=== PATIENT | male | born 1960 | race Caucasian/White ===

== ENCOUNTER 2017-07-31 10:49 | Emergency (ER) | payer BC ==
[2017-07-31] MEDS ORDERED: Rabies VIRUS VACCINE (Imovax)* 2.5 UNIT/ML 1 ML IM ONE (11:08)
--- NOTE | 2017-07-31 11:08 | UC ---
UC General HPI - HPI Summary HPI Summary: Patient here today for rabies vaccination Patient and family will be traveling abroad to a destination where there could be exposure and desires prophylaxis. No fever or chills. No acute concerns. - History of Current Complaint Stated Complaint: RABIES VACC Time Seen by Provider: 07/31/17 11:07 Hx Obtained From: Patient - Allergy/Home Medications Allergies/Adverse Reactions: Allergies Allergy/AdvReac Type Severity Reaction Status Date / Time No Known Allergies Allergy Verified 07/31/17 11:13 PMH/Surg Hx/FS Hx/Imm Hx Previously Healthy: Yes - Family History Known Family History: Positive: None - Social History Occupation: Employed Full-time Lives: With Family Review of Systems Constitutional: Negative Skin: Negative Respiratory: Negative Cardiovascular: Negative Neurological: Negative Psychological: Negative Is Patient Immunocompromised?: No All Other Systems Reviewed And Are Negative: No Physical Exam Triage Information Reviewed: Yes Appearance: Well-Appearing, No Pain Distress, Well-Nourished Vital Signs Reviewed: Yes Eye Exam: Normal ENT Exam: Normal Respiratory Exam: Normal Cardiovascular Exam: Normal Psychological Exam: Normal Skin Exam: Normal Course/Dx - Differential Dx - Multi-Symptom Provider Diagnoses: Rabies Prophylaxis Discharge - Discharge Plan Condition: Good Disposition: HOME Patient Education Materials: Rabies Vaccine (By injection) Referrals: No Primary Care Phys,NOPCP [Primary Care Provider] - If Needed
[2017-07-31 11:44] VITALS: BP 133/91
== END 2017-07-31 11:58 | disposition home or self-care (01) ==
LOC: UCEAST 10:49
DX: Z29.14 Encounter for prophylactic rabies immune globulin (principal)
CPT/HCPCS: 99211; G0463

== ENCOUNTER 2017-08-07 11:13 | Emergency (ER) | payer BC ==
[2017-08-07] MEDS ORDERED: Rabies VIRUS VACCINE (Imovax)* 2.5 UNIT/ML 1 ML IM ONE (12:52)
[2017-08-07 12:56] VITALS: BP 139/96
--- NOTE | 2017-08-07 13:39 | UC ---
UC General HPI - HPI Summary HPI Summary: comes for second dose of prophylactic rabies vaccine, no other complaints - History of Current Complaint Chief Complaint: UCGeneralIllness Stated Complaint: RABIES VACCINE Time Seen by Provider: 08/07/17 12:52 Hx Obtained From: Patient Current Severity: None - Allergy/Home Medications Allergies/Adverse Reactions: Allergies Allergy/AdvReac Type Severity Reaction Status Date / Time No Known Allergies Allergy Verified 07/31/17 11:13 Home Medications: Home Medications NK [No Home Medications Reported] 08/07/17 [History Confirmed 08/07/17] PMH/Surg Hx/FS Hx/Imm Hx - Surgical History Surgical History: None - Family History Known Family History: Positive: None - Social History Alcohol Use: Rare Substance Use Type: None Smoking Status (MU): Never Smoked Tobacco Review of Systems Constitutional: Negative All Other Systems Reviewed And Are Negative: Yes Physical Exam Triage Information Reviewed: Yes Completion Of Physical Exam Limited Due To: Patient age Appearance: Well-Appearing Vital Signs: Initial Vital Signs Temp 97.5 F 08/07/17 12:40 Pulse 80 08/07/17 12:40 Resp 16 08/07/17 12:40 BP 139/96 08/07/17 12:40 Pulse Ox 96 08/07/17 12:40 Vital Signs Reviewed: Yes ENT Exam: Normal Course/Dx - Course Course Of Treatment: vaccine administered - Differential Dx - Multi-Symptom Provider Diagnoses: rabies vaccine Discharge - Discharge Plan Condition: Stable Disposition: HOME Patient Education Materials: Rabies Vaccine (By injection) Referrals: No Primary Care Phys,NOPCP [Primary Care Provider] -
== END 2017-08-07 13:14 | disposition home or self-care (01) ==
LOC: UCEAST 11:13
DX: Z20.3 Contact with and (suspected) exposure to rabies (principal); Z23 Encounter for immunization
CPT/HCPCS: 90471; 99211; G0463

== ENCOUNTER 2017-08-21 08:01 | Emergency (ER) | payer BC ==
[2017-08-21 08:14] VITALS: BP 153/103
[2017-08-21] MEDS ORDERED: Rabies VIRUS VACCINE (Imovax)* 2.5 UNIT/ML 1 ML IM ONE (08:22)
--- NOTE | 2017-08-21 08:22 | UC ---
UC General HPI - HPI Summary HPI Summary: Pt presents for 3rd and final dose of rabies vaccine before his trip to [facility]. No complaints at this time - History of Current Complaint Chief Complaint: UCGeneralIllness Stated Complaint: RABIES VACCINE Time Seen by Provider: 08/21/17 08:21 Hx Obtained From: Patient Pain Intensity: 0 - Allergy/Home Medications Allergies/Adverse Reactions: Allergies Allergy/AdvReac Type Severity Reaction Status Date / Time No Known Allergies Allergy Verified 07/31/17 11:13 PMH/Surg Hx/FS Hx/Imm Hx Previously Healthy: Yes - Surgical History Surgical History: Yes Surgery Procedure, Year, and Place: vasectomy - Family History Known Family History: Positive: None - Social History Occupation: Employed Full-time Lives: With Family Alcohol Use: Rare Substance Use Type: None Smoking Status (MU): Never Smoked Tobacco Review of Systems Constitutional: Negative Skin: Negative Eyes: Negative ENT: Negative Respiratory: Negative Cardiovascular: Negative Gastrointestinal: Negative Neurological: Negative Psychological: Negative All Other Systems Reviewed And Are Negative: Yes Physical Exam Triage Information Reviewed: Yes Appearance: Well-Appearing, No Pain Distress, Obese Vital Signs: Initial Vital Signs Temp 98 F 08/21/17 08:09 Pulse 86 08/21/17 08:09 Resp 15 08/21/17 08:09 BP 153/103 08/21/17 08:09 Pulse Ox 98 08/21/17 08:09 Vital Signs Reviewed: Yes Neck: Positive: Supple, Nontender, No Lymphadenopathy Respiratory: Positive: Normal breath sounds, No respiratory distress, No accessory muscle use Cardiovascular: Positive: RRR, Pulses Normal Neurological: Positive: Alert Psychological: Positive: Age Appropriate Behavior Skin: Negative: rashes Course/Dx - Course Course Of Treatment: Vaccine given - Differential Dx - Multi-Symptom Provider Diagnoses: Rabies vaccination Discharge - Discharge Plan Condition: Stable Disposition: HOME Patient Education Materials: Rabies Vaccine (By injection) Referrals: No Primary Care Phys,NOPCP [Primary Care Provider] - Additional Instructions: If you develop a fever, shortness of breath, chest pain, new or worsening symptoms - please call your PCP or go to the ED. Your blood pressure was high at todays visit. Please see your primary provider within 4 weeks for recheck and re-evaluation.
== END 2017-08-21 08:45 | disposition home or self-care (01) ==
LOC: UCEAST 08:01
DX: Z20.3 Contact with and (suspected) exposure to rabies (principal); Z29.14 Encounter for prophylactic rabies immune globulin
CPT/HCPCS: 99211; G0463